=== PATIENT | male | born 2000 ===

== ENCOUNTER 2022-02-05 04:16 | Emergency (ER) | payer OTHER ==
[~2022-02-05] VITALS: Ht 170.2 cm; Wt 59.0 kg
[2022-02-05] MEDS ORDERED: PHENAGIL TABLE1 EACH PO (05:42)
== END 2022-02-05 05:49 ==
LOC: EMR PED 04:16 → ER 04:16
DX: J06.9 Acute upper respiratory infection, unspecified (principal)

== ENCOUNTER 2022-02-16 13:34 | Outpatient (CLI) | payer OTHER ==
[~2022-02-16 13:34] MED LIST: PHENAGIL TABLE1 EACH PO
== END 2022-02-16 13:35 | disposition home or self-care (01) ==
LOC: PPH VACUNA 13:34
PROVIDERS: ATTEND Emergency Medicine Pediatric Emergency Medicine
DX: Z23 Encounter for immunization (principal)